=== PATIENT | male | born 1935 | race Caucasian/White ===

== ENCOUNTER → 2018-05-14 12:16 | Outpatient (CLI) | payer MEDICARE, OTHER, SELFPAY ==
--- NOTE | 2018-05-14 | DI.ECHO.S_ITS ---
[facility] +---------+ : : [address] : : : : [id number] : : : : Phone: [phone]---------+ Echocardiogram Report + + :Name: JOSELINE SANDOVAL Study Date: 05/14/2018 Height: 68 in : :[facility] Weight: 187 lb : : Gender: Male BSA: 2.0 m2 : :: 1935 Age: 83 yrs BP: 144/88 mmHg: :Reason For Study: Atrial flutter, Mitral valve repair : :Ordering Physician: Edin García : :Fani Performed By: Kira Ornelas : :Referring: Dr. Davian Gutiérrez : + + Interpretation Summary Left ventricular systolic function is mildly reduced with the ejection fraction grossly estimated to be 45-50%. There is a flattened septum which is consistent with a right ventricular volume overload state and paradoxical septal motion that is consistent with right ventricular volume overload or a post-operative state but there are no focal wall motion abnormalities. This is unchanged compared to the previous study. Left ventricular wall thickness is mildly increased. The right ventricle is moderately dilated and right ventricular systolic function is at the lower limits of normal but appears unchanged compared to the previous study. The right ventricular systolic pressure is estimated to be at least 37 mmHg based on an estimated right atrial pressure of 8 mm Hg, and is likely similar compared to the previous study. Both atria are severely dilated, The left atrium has mildly increased in size since the prior echo exam. The posterior mitral leaflet is thickened and fixed consistent with prior mitral repair surgery with mild to moderate mitral regurgitation that appears unchanged compared to the previous study. There is mild aortic regurgitation and probable moderate to severe tricuspid regurgitation. Both grossly appear to be unchanged compared to the previous study. The ascending aorta is mildly enlarged and measures slightly larger compared to the previous study. A moderate moderate right-sided pleural effusion may be present but is not well imaged and was not seen on the previous exam. Procedure: A two-dimensional transthoracic echocardiogram with color flow and Doppler was performed. The study quality was technically adequate. Comparison is made with the echocardiogram of 08/06/2016. The patient has a paced rhythm. Left Ventricle: The left ventricle is normal in size. Left ventricular wall thickness is mildly increased. There is no ventricular septal defect visualized. Left ventricular systolic function is mildly reduced. The ejection fraction is estimated to be 45-50%. Flattened septum is consistent with RV volume overload. Paradoxical septal motion is consistent with right ventricular volume overload. Septal motion is consistent with post-operative state. There are no focal wall motion abnormalities. This is unchanged compared to the previous study. Diastolic function could not be accurately assessed due to paced rhythm. There has been no significant change since the previous study. Right Ventricle: There is a pacemaker lead in the right ventricle. The right ventricle is moderately dilated. Right ventricular systolic function is at the lower limits of normal. This is unchanged compared to the previous study. Atria: Both atria are severely dilated. The left atrium has mildly increased in size since the prior echo exam. There is no Doppler evidence for an interatrial shunt. Mitral Valve: The posterior mitral leaflet is thickened and fixed consistent with prior mitral repair surgery. The mitral valve has been surgically repaired and an annuloplasty ring sewn in place. The mitral valve mean gradient is 4.0 mmHg. There is mild to moderate mitral regurgitation. This is unchanged compared to the previous study. Aortic Valve: The aortic valve is trileaflet. The aortic valve opens well. There is mild aortic regurgitation. This is unchanged compared to the previous study. Tricuspid Valve: The tricuspid valve is normal in structure but is abnormal in function. There is moderate to severe tricuspid regurgitation. This is unchanged compared to the previous study. The right ventricular systolic pressure is estimated to be at least 37 mmHg based on an estimated right atrial pressure of 8 mm Hg. This is likely similar compared to the previous study. Pulmonic Valve: The pulmonic valve is normal in structure and function. There is a trace or physiologic amount of pulmonic regurgitation. Great Vessels: The aortic root is normal size. The ascending aorta is mildly enlarged. This is slightly larger compared to the previous study. The aortic arch could not be visualized. The IVC is dilated (diameter is greater than 2.1 cm) yet it collapses greater than 50% with a sniff. This suggests a right atrial pressure of 8 mm Hg. Pericardium/ Pleura There is no pericardial effusion. There is a moderate right-sided pleural effusion. MMode/2D Measurements & Calculations LVIDd: 5.0 cm LVOT diam: 2.4 cm LVIDs: 3.0 cm Ao root diam: 3.7 cm FS: 40.2 % Aortic Jxn: 2.8 cm EPSS: 0.24 cm asc Aorta Diam: 3.6 cm IVSd: 1.1 cm LVPWd: 1.2 cm LV murrieta. diameter/BSA (cm/m^2): 2.5 LV sys. diameter/BSA (cm/m^2): 1.5 LA A2 area: 27.5 cm2 RA long axis: 7.9 cm LA A4 area: 29.7 cm2 RA area: 38.7 cm2 LA length (vol): 6.7 cm RA vol: 161.8 ml LA vol: 103.9 ml RA : 81.5 ml/m2 LA vol index: 52.3 ml/m2 IVC diam: 3.4 cm RVD1 (basal): 5.6 cm RVD2 (mid): 3.9 cm TAPSE: 0.97 cm Doppler Measurements & Calculations Ao V2 max: 98.3 cm/sec LVOT Max Chava: 61.4 cm/sec Ao V2 mean: 67.6 cm/sec LV V1 max P.5 mmHg Ao max P.9 mmHg LV V1 VTI: 11.7 cm Ao mean P.1 mmHg KAELYN(I,D): 3.0 cm2 Ao V2 VTI: 18.0 cm KAELYN(V,D): 2.9 cm2 sev ratio: 0.65 KAELYN indexed to BSA (cm^2/m^2): 1.5 Med Peak E' Chava: 5.1 cm/sec TR max chava: 267.8 cm/sec Lat Peak E' Chava: 8.5 cm/sec TR max P.7 mmHg MV P1/2t: 110.4 msec PA V2 max: 63.2 cm/sec MVA(VTI): 1.4 cm2 PA V2 mean: 34.8 cm/sec MVA(traced): 2.0 cm2 PA mean P.62 mmHg PA Accel Time: 0.06 sec MV V2 mean: 87.7 cm/sec MV P1/2t max chava: 171.0 cm/sec MV mean P.0 mmHg MVA(P1/2t): 2.0 cm2 MV V2 VTI: 39.6 cm SV(LVOT): 54.8 ml Reading Physician:NHAN
== END ==
PROVIDERS: Family Provider Family Medicine; PCP Family Medicine; Visit Provider Internal Medicine Cardiovascular Disease
DX: I08.3 Combined rheumatic disorders of mitral, aortic and tricuspid valves (principal); I48.92 Unspecified atrial flutter; J90 Pleural effusion, not elsewhere classified
CPT/HCPCS: 93306

== ENCOUNTER → 2019-07-15 08:21 | Outpatient (CLI) | payer MEDICARE, OTHER, SELFPAY ==
--- NOTE | 2019-07-15 | DI.US.S_ITS ---
PROCEDURE: US THORACENTESIS INDICATIONS: RIGHT SIDED PLEURAL EFFUSION/Lab TECHNIQUE: The indications, alternatives, benefits, risks, and complications of the procedure were explained to the patient. Written informed consent was obtained and placed in the chart. The chest was examined sonographically, and an appropriate site was chosen for thoracentesis. The skin was prepared and draped in the usual sterile fashion, and 1% lidocaine was infiltrated from the skin down through the pleural surface. A 19-gauge catheter-covered needle was then introduced into the pleural space, the catheter was advanced and the needle was withdrawn, and thereafter pleural fluid was aspirated. The catheter was then removed and a dressing was applied. COMPARISON: None. FINDINGS: Access site: Right posterior hemithorax. Needle: One-Step centesis catheter with introducer needle. Fluid volume and description: Serous, 950 mL Fluid sent for diagnostic testing: Not requested Medications: 1% lidocaine for local anaesthesia. Complications: None; post-procedural chest radiograph is pending to assess for pneumothorax. IMPRESSION: Successful ultrasound-guided thoracentesis. Dictated by: Kirill Marcelo M.D. on 07/15/2019 at 12:55 Approved by: Kirill Marcelo M.D. on 07/15/2019 at 12:56
[2019-07-15 09:01] LABS: Platelet Count 176 X10^3/uL (150-400)
[2019-07-15 09:05] LABS: INR 1.1 (0.9-1.3); Prothrombin Time 13.2 SECONDS (10.1-12.7)
[2019-07-15 09:07] LABS: PTT Partial Thromboplastin Tim 31 SECONDS (26.4-36.2)
--- NOTE | 2019-07-15 11:27 | DI.RAD.S_ITS ---
PROCEDURE: XR CHEST 1V INDICATIONS: POST THORACENTESIS TECHNIQUE: One view of the chest was acquired. COMPARISON: [facility], CHEST 2 VIEW, 03/16/2013, 13:06. [facility], , CHEST 2 VIEW, 08/06/2007, 10:53. FINDINGS: Surgical changes and devices: Pacemaking device and dual chamber leads normal. Prior sternotomy.. Lungs and pleura: Lungs are mildly atelectatic at the right lung base. No left-sided pleural effusions but there is a small remaining subpulmonic right effusion and no pneumothorax after right sided 950 cc thoracentesis just before this study. Mediastinum: Mediastinal contours appear normal. Heart size is mildly enlarged. Bones and chest wall: No suspicious bony lesions. Overlying soft tissues appear unremarkable. IMPRESSION: Mild cardiomegaly, isolated subpulmonic small right effusion after right-sided 950 cc thoracentesis earlier today. Cardiac pacemaking device and leads appear normal as do sternotomy wires. Right lung base atelectasis, as expected. Dictated by: Kirill Marcelo M.D. on 07/15/2019 at 12:53 Approved by: Kirill Marcelo M.D. on 07/15/2019 at 12:55
== END ==
PROVIDERS: Family Provider Family Medicine; PCP Family Medicine; Referring Provider Family Medicine; Visit Provider Family Medicine
DX: J90 Pleural effusion, not elsewhere classified (principal); I51.7 Cardiomegaly; J98.11 Atelectasis; Z95.0 Presence of cardiac pacemaker
CPT/HCPCS: 32555; 36415; 71045; 85049; 85610; 85730

== ENCOUNTER 2019-07-15 10:08 | Emergency (ER) | payer MEDICARE, OTHER, SELFPAY ==
[2019-07-15 10:11] VITALS: BP 151/76; PULSE 80; RESP 16; TEMP 36.8; O2SAT 95; BMI 26.6
--- NOTE | 2019-07-15 10:15 | ED.GENADULT ---
HPI - General Adult General Chief complaint: Trauma Stated complaint: FALL Time Seen by Provider: 07/15/19 10:09 Source: patient Mode of arrival: other (Stretcher) Limitations: no limitations History of Present Illness HPI narrative: Patient is an 84-year-old male. Currently on anticoagulation for ?heart issues ?was walking in to the hospital for an appointment that he had for right-sided thoracentesis when he lost his balance fell over and hit his head on the emergency department door. He had no loss of consciousness. He was evaluated initially out in the hallway and reported no neck pain. He was helped up and was able to stand and was able to walk over to the stretcher on his own. We did advise him that since he did hit his head and that he is on anticoagulation he should be evaluated the emergency department. He did agree. He reports no bone or joint injury. Has an abrasion to his right side of his head. He states he was walking down the ruiz when his right leg gave out and he fell over. He had no other associated symptoms at the time of his fall. He states this has happened to him 1 time before and was 6 days ago where he fell and hit the right side of his face. He is has some bruising on the right side of his face that does not appear to be new. Related Data Allergies Allergy/AdvReac Type Severity Reaction Status Date / Time dabigatran etexilate AdvReac Verified 07/15/19 10:24 [From [facility]] Review of Systems Constitutional Constitutional: Denies chills, Denies fatigue, Denies frequent falls, Denies headache(s) and Reports weakness (Right knee/leg) Eyes Eyes: Denies change in vision ENT Ears, Nose, Mouth, and Throat: Denies vertigo, Denies dizziness, Denies headache(s) and Denies disequilibrium Cardiovascular Cardiovascular: Denies chest pain, Denies syncope and Denies dyspnea Respiratory Respiratory: Denies dyspnea Gastrointestinal Gastrointestinal: Denies abdominal pain Musculoskeletal Musculoskeletal: Denies myalgias, Denies arthralgias and Denies tingling Integumentary/Breasts Comments: Abrasion to right side of head Neurologic Neurologic: Denies behavioral changes, Denies burning sensations, Denies confusion, Denies vertigo, Denies dizziness, Denies syncope, Denies frequent falls, Denies headache(s), Denies tingling, Denies paresthesias, Denies disequilibrium and Reports weakness (Right knee/leg) Psychiatric Psychiatric: Denies behavioral changes and Denies confusion Endocrine Endocrine: Denies fatigue Hematologic/Lymphatic Comments: On anticoagulation Patient History Medical History Pleural effusion (Acute) Social History Smoking Status: Former smoker Exam Initial Vital Signs Initial Vital Signs: Vital Signs Temperature 98.3 F 07/15/19 10:11 Pulse Rate 80 07/15/19 10:11 Respiratory Rate 16 07/15/19 10:11 Blood Pressure 151/76 H 07/15/19 10:11 Pulse Oximetry 95 07/15/19 10:11 Const General: cooperative, comfortable, well developed, well groomed and No acute distress Limitations: mental status not altered HENMT Head: abrasion Resp Effort & Inspection: normal respiratory effort Auscultation: clear to auscultation bilaterally Cardio Rate: regular rate Rhythm: regular rhythm GI Inspection: non-distended Palpation: soft Skin Other: Abrasion to right side of head on the temporal/parietal aspect. No active bleeding. Neuro General: alert, awake and oriented x3 Extrem General: normal to inspection, capillary refill normal and No edema Other: Moves all 4 extremities Psych Appearance: grossly normal and well kempt Scores GCS Yenifer coma scale eye opening: Spontaneous [place] coma scale verbal response: Orientated Yenifer coma scale motor response: Obey commands Yeniefr coma scale total score: 15 Course Orders Ordered: ED Orders 07/15/19 10:26 CT head/brain wo con Stat Vital Signs Vital signs: Vital Signs - 8 hr 07/15/19 10:11 Temperature 98.3 F Pulse Rate 80 Respiratory Rate 16 Blood Pressure 151/76 H Pulse Oximetry 95 Medical Decision Making Imaging Data CT scan - head: Radiologist's Impression: [address] [address] XRay Report Signed Patient: Bonita Storng WMR#: [id number] : 4Acct:[id number] Age/Sex: 74 / FDate of Service: 07/15/19 Loc: ED Accession Number: [id number] Procedure: XR wrist RT min 3V Ordering Provider: Castillo Melara D.O. PROCEDURE: XR WRIST RT MIN 3V INDICATIONS: wrist pain after fall TECHNIQUE: 3 views of the wrist were acquired. COMPARISON: None. FINDINGS: Bones: No definite fractures or dislocations but there is superimposed degenerative osteoarthritic change that limits the ability of this study to accurately detect nondisplaced fractures. No suspicious bony lesions. Scaphoid view: No trauma found. Distal scaphoid degenerative change. Soft tissues: No suspicious soft tissue calcifications. 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 Depending on the clinical status followup by delayed plain films in several days or advanced imaging such as MR or CT scanning may become necessary. Dictated by: Kirill Marcelo M.D. on 07/15/2019 at 10:40 Approved by: Kirill Marcelo M.D. on 07/15/2019 at 10:42 MDM Narrative Medical decision making narrative: Patient is alert oriented x3. The abrasions on the right side of his scalp knee no intervention in the ER. His head CT is unremarkable. Modified trauma was called secondary to the fall and anticoagulation. He reports no extremity injuries from the fall. We were able to keep his appointment that he was going to have today for right-sided thoracentesis. He was given return precautions and follow-up instructions. He expressed understanding and agreement. Discharge Plan Departure Patient Disposition: Home Clinical Impression: Abrasion of scalp Qualifiers: Encounter type: initial encounter Qualified Code(s): S00.01XA - Abrasion of scalp, initial encounter Fall Qualifiers: Encounter type: initial encounter Qualified Code(s): W19.XXXA - Unspecified fall, initial encounter Instructions: How to Prevent Falls Activity Restrictions/Additional Instructions: I do recommend that you talk with your primary provider about the 2 falls that you have had in the past couple weeks. The you can shower like normal in use soap and water like normal despite the abrasion on the right side of your head. Return to the emergency department for any new or worsening symptoms Referrals: Davian Gutiérrez MD [Primary Care Provider] -
--- NOTE | 2019-07-15 10:26 | DI.CT.S_ITS ---
PROCEDURE: CT HEAD/BRAIN WO CON INDICATIONS: Fall, hit right-sided head, on anticoagulation TECHNIQUE: Noncontrast 4.5 mm thick angled axial sections acquired from the foramen magnum to the vertex, with coronal and sagittal reformats. For radiation dose reduction, the following was used: automated exposure control, adjustment of mA and/or kV according to patient size. COMPARISON: [facility], CT, HEAD WITHOUT CONTRAST, 06/24/2009, 10:29. FINDINGS: Image quality: Excellent. CSF spaces: Basal cisterns are patent. No extra-axial fluid collections. The ventricles are symmetric in size and shape. Brain: No intracranial bleeds or masses. There is cerebral volume loss for age, with resultant ventricular and sulcal prominence. There are periventricular and deep white matter chronic small vessel ischemic changes. There is intracranial internal carotid artery atherosclerosis. Skull and face: Calvarium and visualized facial bones appear intact, without suspicious lesions. Sinuses: Visualized sinuses and mastoids are clear. IMPRESSION: Normal for age, source of current pain after trauma symptoms is not seen. No intracranial hemorrhage is present. Dictated by: Kirill Marcelo M.D. on 07/15/2019 at 10:43 Approved by: Kirill Marcelo M.D. on 07/15/2019 at 10:44
[2019-07-15 10:51] VITALS: BP 141/98; PULSE 56; RESP 20; TEMP 36.8
== END 2019-07-15 11:01 | disposition home or self-care (01) ==
PROVIDERS: Emergency Provider Emergency Medicine; Family Provider Family Medicine; PCP Family Medicine
DX: S00.01XA Abrasion of scalp, initial encounter (principal); M25.531 Pain in right wrist; W19.XXXA Unspecified fall, initial encounter; Z79.01 Long term (current) use of anticoagulants; J90 Pleural effusion, not elsewhere classified; I51.7 Cardiomegaly; J98.11 Atelectasis; Z95.0 Presence of cardiac pacemaker
CPT/HCPCS: 32555; 36415; 70450; 71045; 85049; 85610; 85730; 99283; 99284